=== PATIENT | female | born 1970 | race Caucasian/White ===

== ENCOUNTER 2023-08-27 11:54 | Emergency (ER) | payer OTHER ==
[~2023-08-27] VITALS: Ht 152.4 cm; Wt 59.0 kg
[2023-08-27 13:25] LABS: HEMATOCRIT 37.9 % (36.0-45.00); HEMOGLOBIN 12.7 g/dL (12.0-15.00); MEAN CELL VOLUME 88.9 fL (80.00-100.00); MEAN CORPUSCULAR HEMOGLOBIN 29.9 pg (27.00-32.0); MEAN CORPUSCULAR HGB CONC 33.6 g/dl (32.0-36.0); PLATELET COUNT 312 K/uL (150-450); RED BLOOD COUNT 4.26 M/uL (4.00-6.00); RED CELL DISTRIBUTION WIDTH 13.8 % (11.5-14.5)
[2023-08-27 13:27] LABS: PH,URINE 6.5 (5.0-8.0); URINE APPEARANCE Clear; URINE BILIRRUBIN Negative (NEGATIVE); URINE BLOOD Negative; URINE COLOR Yellow; URINE GLUCOSE Negative (NEGATIVE); URINE LEUKOCYTE Negative; URINE NITRATE Negative; URINE PROTEIN Negative (NEGATIVE); URINE UROBILINOGEN 0.2 E.U./dl
[2023-08-27 13:28] LABS: URINE BACTERIA 123.3 uL (0.0-1933); URINE EPITHELIAL CELLS 7.6 uL (0.0-38.8); URINE RBC 4.7 uL (0.0-20.8)
[2023-08-27 13:40] LABS: URINE WBC 1.6 uL (0.0-23.2)
[2023-08-27 14:28] LABS: CALCIUM 8.8 mg/dL (8.5-10.1); CREATININE SERUM 0.71 mg/dL (0.55-1.02); GFR 86.79; POTASSIUM 3.84 mEq/L (3.5-5.1)
== END 2023-08-27 15:57 | disposition home or self-care (01) ==
LOC: ER 11:54
PROVIDERS: General Practice
DX: K80.40 Calculus of bile duct with cholecystitis, unspecified, without obstruction (principal)